=== PATIENT | male | born 1975 | race American Indian/Alaskan Native ===

== ENCOUNTER 2020-09-15 19:03 | Emergency (ER) | payer SELFPAY ==
--- NOTE | 2020-09-15 19:16 | EDM.PDOC ---
ED HPI GENERAL MEDICAL PROBLEM - General Chief Complaint: Behavioral/Psych Stated Complaint: SUICIDAL THOUGHTS Time Seen by Provider: 09/15/20 19:10 Source of Information: Reports: Patient History Limitations: Reports: No Limitations - History of Present Illness INITIAL COMMENTS - FREE TEXT/NARRATIVE: 45-year-old calm, cooperative male presents with suicidal ideation. Someone called PD for a wellness check while he was walking in the cold to in [place]. He recently lost his job. When PD arrived he told him he wanted to be taken to the hospital because he was suicidal. He does not have a plan. He drank alcohol on Thursday. Patient denies fever, chills, headache, chest pain, shortness of breath, abdominal pain, focal numbness or weakness. ROS: A 10-point review of systems, other than pertinent positives and negatives as stated per HPI, is otherwise negative Past medical history: No additional pertinent history Past Surgical history: No additional pertinent history Social history: No additional pertinent history Family history: No additional pertinent history PHYSICAL EXAM General: AOx4, GCS = 15, No distress HEENT: dry mucous membrane Neck: supple, no meningismus, no Kernig or Brudzinski Cardiac: S1S2 RRR Respiratory: CTAB, no crackles or rales, no wheezing Abdomen: Soft, nontender, no rebound or guarding, nondistended, no pulsatile mass. Back: nontender Musculoskeletal: NVI distally, no deformity Neuro: No focal deficits, CN 2 - 12 WNL. Psych: Suicidal ideation - Related Data Allergies Allergy/AdvReac Type Severity Reaction Status Date / Time No Known Allergies Allergy Verified 09/15/20 19:18 Home Meds: Home Meds . [No Known Home Meds] 09/15/20 [History] ED ROS GENERAL - Review of Systems Review Of Systems: See Below (see dictation) ED EXAM, GENERAL - Physical Exam Exam: See Below (see dictation) #1 Interpretation EKG Interpretation Comments: Heart rate = 83 bpm, normal sinus rhythm, normal QRS interval, no STEMI. EKG and rhythm strip interpreted by me at 1922 Course - Vital Signs Last Recorded V/S: Last Vital Signs Temp 98.7 F 09/15/20 19:18 Pulse 103 H 09/15/20 20:02 Resp 20 09/15/20 20:02 BP 180/111 H 09/15/20 20:02 Pulse Ox 99 09/15/20 20:02 - Orders/Labs/Meds Orders: Active Orders 24 hr Category Date Time Status EKG Documentation Completion [RC] STAT Care 09/15/20 19:14 Active CORONAVIRUS COVID-19 JACQUE [MOLEC] Stat Lab 09/15/20 19:52 Ordered DRUG SCREEN, URINE [URCHEM] Stat Lab 09/15/20 19:14 Ordered UA W/MICROSCOPIC [URIN] Stat Lab 09/15/20 19:14 Ordered Labs: Laboratory Tests 09/15/20 09/15/20 Range/Units 19:28 19:28 WBC 13.35 H (4.0-11.0) K/uL RBC 5.17 (4.50-5.90) M/uL Hgb 16.1 (13.0-17.0) g/dL Hct 46.9 (38.0-50.0) % MCV 90.7 (80.0-98.0) fL MCH 31.1 (27.0-32.0) pg MCHC 34.3 (31.0-37.0) g/dL RDW Std Deviation 43.6 (28.0-62.0) fl RDW Coeff of Meg 13 (11.0-15.0) % Plt Count 222 (150-400) K/uL MPV 10.90 (7.40-12.00) fL Neut % (Auto) 84.4 H (48.0-80.0) % Lymph % (Auto) 7.5 L (16.0-40.0) % [place] % (Auto) 7.9 (0.0-15.0) % Eos % (Auto) 0.1 (0.0-7.0) % Baso % (Auto) 0.1 (0.0-1.5) % Neut # (Auto) 11.3 H (1.4-5.7) K/uL Lymph # (Auto) 1.0 (0.6-2.4) K/uL [place] # (Auto) 1.1 H (0.0-0.8) K/uL Eos # (Auto) 0.0 (0.0-0.7) K/uL Baso # (Auto) 0.0 (0.0-0.1) K/uL Nucleated RBC % 0.0 /100WBC Nucleated RBCs # 0 K/uL Sodium 138 (136-148) mmol/L Potassium 3.4 L (3.5-5.1) mmol/L Chloride 99 (98-107) mmol/L Carbon Dioxide 25.8 (21.0-32.0) mmol/L BUN 16 (7.0-18.0) mg/dL Creatinine 1.0 (0.8-1.3) mg/dL Est Cr Clr Drug Dosing 85.07 mL/min Estimated GFR (MDRD) > 60.0 ml/min Glucose 86 (74-106) mg/dL Calcium 9.3 (8.5-10.1) mg/dL Magnesium 1.9 (1.8-2.4) mg/dL Total Bilirubin 1.5 H (0.2-1.0) mg/dL AST 73 H (15-37) IU/L ALT 66 H (14-63) IU/L Alkaline Phosphatase 140 H (46-116) U/L Total Protein 8.3 H (6.4-8.2) g/dL Albumin 4.1 (3.4-5.0) g/dL Globulin 4.2 H (2.6-4.0) g/dL Albumin/Globulin Ratio 1.0 (0.9-1.6) TSH 3rd Generation 0.61 (0.36-3.74) uIU/mL Salicylates 0.9 (0-20) mg/dL Acetaminophen <2.0 ug/mL Ethyl Alcohol 3 mg/dL Meds: Medications Discontinued Medications Generic Name Dose Route Start Last Admin Trade Name Freq PRN Reason Stop Dose Admin Hydrochlorothiazide 25 mg 09/15/20 20:03 09/15/20 20:06 Hydrochlorothiazide PO 09/15/20 20:04 25 mg ONETIME ONE Administration Lorazepam 2 mg 09/15/20 19:57 09/15/20 20:00 Ativan PO 09/15/20 19:58 2 mg ONETIME ONE Administration - Re-Assessments/Exams Free Text/Narrative Re-Assessment/Exam: 09/15/20 20:09 Patient is medically cleared for psychiatric assessment. Case discussed with Dr. Abdi, on-call for psychiatry, will see the patient in the ER. Case discussed with Dr. Luis Daniel Swenson, will accept patient at the ER at [facility] Departure - Departure Time of Disposition: 19:59 Disposition: DC/Tfer to Psych Hosp/Unit 65 Condition: Good Clinical Impression: Suicidal ideation - Discharge Information *PRESCRIPTION DRUG MONITORING PROGRAM REVIEWED*: Not Applicable *COPY OF PRESCRIPTION DRUG MONITORING REPORT IN PATIENT OLGA LIDIA: Not Applicable Instructions: Suicidal Feelings: How to Help Yourself Referrals: PCP,None [Primary Care Provider] - Forms: ED Department Discharge Sepsis Event Note (ED) - Focused Exam Vital Signs: Vital Signs Temp Pulse Resp BP Pulse Ox 09/15/20 20:02 103 H 20 180/111 H 99 09/15/20 19:18 98.7 F 86 22 H 180/113 H 98 - My Orders Last 24 Hours: My Active Orders 09/15/20 19:14 EKG Documentation Completion [RC] STAT DRUG SCREEN, URINE [URCHEM] Stat UA W/MICROSCOPIC [URIN] Stat 09/15/20 19:52 CORONAVIRUS COVID-19 JACQUE [MOLEC] Stat - Assessment/Plan Last 24 Hours: My Active Orders 09/15/20 19:14 EKG Documentation Completion [RC] STAT DRUG SCREEN, URINE [URCHEM] Stat UA W/MICROSCOPIC [URIN] Stat 09/15/20 19:52 CORONAVIRUS COVID-19 JACQUE [MOLEC] Stat
[2020-09-15] MEDS ORDERED: LORazepam 1 MG Tab PO ONE (19:57)
[2020-09-15] MEDS ORDERED: Hydrochlorothiazide 25 MG Tab PO ONE (20:03)
[2020-09-15 20:04] LABS: BLOOD UREA NITROGEN,BUN 16 mg/dL (7.0-18.0); CARBON DIOXIDE,CO2 25.8 mmol/L (21.0-32.0); CHLORIDE,CL 99 mmol/L (98-107); GLUCOSE RANDOM 86 mg/dL (74-106); POTASSIUM,K 3.4 mmol/L (3.5-5.1); SODIUM,NA 138 mmol/L (136-148)
[2020-09-15 20:06] LABS: ACETAMINOPHEN <2.0 ug/mL
[2020-09-15] MEDS ORDERED: Naproxen 500 MG Tab PO ONE (20:46)
== END 2020-09-15 22:00 ==
LOC: MW.ED 19:03
DX: R45.851 Suicidal ideations (principal); Z20.828 Contact with and (suspected) exposure to other viral communicable diseases
CPT/HCPCS: 36415; 80053; 80305; 80307; 81001; 83735; 84443; 85025; 87635; 93005; 99285; A9270; 93010; 99284; U0002